=== PATIENT | male | born 1980 | race Caucasian/White ===

== ENCOUNTER → 2018-10-28 | Outpatient (REF) | payer OTHER, SELFPAY ==
[2018-10-28 18:17] LABS: CHOLESTEROL RISK RATIO 4.395 (<5)
[2018-10-28 18:42] LABS: HEMOGLOBIN A1c 5.2 %
== END ==
LOC: M SFHCPLAZ 15:23
DX: Z71.89 Other specified counseling (principal); Z13.1 Encounter for screening for diabetes mellitus